=== PATIENT | male | born 1950 | race Caucasian/White ===

== ENCOUNTER 2018-12-06 16:27 | Emergency (ER) | payer MEDICAID ==
[~2018-12-06] VITALS: Ht 152.4 cm; Wt 72.7 kg
[2018-12-06] MEDS ORDERED: ASPI-1182 PO (16:46)
[2018-12-06] MEDS ORDERED: HYDR-4069 PO (16:46)
[2018-12-06] MEDS ORDERED: CARV12 PO (16:46)
[2018-12-06] MEDS ORDERED: GABA-531 PO (16:46)
[2018-12-06] MEDS ORDERED: ATOR40TA28 PO (16:46)
[2018-12-06] MEDS ORDERED: LISI-660 PO (16:46)
[2018-12-06] MEDS ORDERED: TAMS-1 PO (16:46)
[2018-12-06] MEDS ORDERED: DICLOFENAC SODIUM 1% 100 GM GEL [4GM] TP ONE (19:15)
[2018-12-06 19:36] VITALS: BP 114/75
== END 2018-12-06 19:47 | disposition home or self-care (01) ==
LOC: EMS 16:30
DX: M23.92 Unspecified internal derangement of left knee (principal); E78.00 Pure hypercholesterolemia, unspecified; I10 Essential (primary) hypertension; F12.90 Cannabis use, unspecified, uncomplicated; Z86.19 Personal history of other infectious and parasitic diseases; Z79.899 Other long term (current) drug therapy

== ENCOUNTER 2019-10-08 09:31 | Emergency (ER) | payer MEDICARE, MEDICAID ==
[~2019-10-08] VITALS: Ht 170.2 cm; Wt 78.6 kg
[~2019-10-08 09:31] MED LIST: ASPI-1111 PO; ATOR40TA28 PO; CARV12 PO; GABA-1181 PO; HYDR-4069 PO; LISI-660 PO; TAMS-1 PO
[2019-10-08 10:10] LABS: BASOPHILS % (AUTO) 1.3 % (0.0-2.0); EOSINOPHILS % (AUTO) 5.8 % (1.0-6.0); HEMATOCRIT 39.5 % (41-53); HEMOGLOBIN 13.1 g/dL (13.5-17.5); LYMPHOCYTES # (AUTO) 1.5 K/uL (1.0-4.8); LYMPHOCYTES % (AUTO) 32.5 % (22.0-44.0); MEAN CORPUSCULAR HEMOGLOBIN 29.3 pg (26.0-34.0); MEAN CORPUSCULAR HGB CONC 33.1 G/dL (31.0-37.0); MEAN CORPUSCULAR VOLUME 89 fL (80-100); MONOCYTES # (AUTO) 0.6 K/uL (0.1-1.0); MONOCYTES % (AUTO) 12.8 % (2.0-9.0); NEUTROPHILS # (AUTO) 2.2 K/uL (1.8-7.7); NEUTROPHILS % (AUTO) 47.6 % (40.0-70.0); PLATELET COUNT (AUTO) 132 K/uL (150-450); RED BLOOD CELL COUNT(AUTO) 4.47 MIL/uL (4.50-5.90); RED CELL DISTRIBUTION WIDTH 15.1 % (11.5-14.5)
[2019-10-08 10:19] LABS: CALCIUM, TOTAL 8.9 mg/dL (8.8-10.5); CREATININE 1.33 mg/dL (0.60-1.30); POTASSIUM 4.4 mmol/L (3.5-5.1)
[2019-10-08 10:22] LABS: PROTHROMBIN TIME 10.7 SEC (9.4-11.6)
[2019-10-08 10:25] LABS: ALBUMIN 3.7 g/dL (3.4-5.0); BILIRUBIN,TOTAL 0.5 mg/dL (0.1-1.0); TOTAL PROTEIN, SERUM 7.6 g/dL (6.4-8.2)
[2019-10-08] MEDS ORDERED: ASPIRIN 325 MG TABLET PO ONE (10:45)
[2019-10-08] MEDS: ASPIRIN 300 MG RECTAL SUPPOSITORY PR ONE (11:00)
[2019-10-08 16:00] VITALS: BP 126/89
== END 2019-10-08 16:21 | disposition short-term general hospital (02) ==
LOC: EMS 09:31
DX: I63.9 Cerebral infarction, unspecified (principal); E78.00 Pure hypercholesterolemia, unspecified; I10 Essential (primary) hypertension; F12.90 Cannabis use, unspecified, uncomplicated; Z79.899 Other long term (current) drug therapy; Z79.82 Long term (current) use of aspirin
CPT/HCPCS: 86850; 86900; 86901; 93005; 99291

== ENCOUNTER → 2019-12-31 | Emergency (ER) | payer MEDICARE, MEDICAID ==
[~2019-12-31] VITALS: Ht 165.1 cm; Wt 81.8 kg
[~2019-12-31] MED LIST changes: +CefTRIAXone 1 GM/DEXTROSE 50 ML IV ONE; +SODIUM CHLORIDE 0.9% 1,000 ML IV ONE; +VANCOMYCIN HCL 1 GM/D5% WATER 200 ML IV ONE
[2019-12-31 10:34] LABS: BASOPHILS % (AUTO) 0.5 % (0.0-2.0); EOSINOPHILS % (AUTO) 0.8 % (1.0-6.0); HEMATOCRIT 38.1 % (41-53); HEMOGLOBIN 12.3 g/dL (13.5-17.5); LYMPHOCYTES % (AUTO) 5.3 % (22.0-44.0); MEAN CORPUSCULAR HEMOGLOBIN 28.4 pg (26.0-34.0); MEAN CORPUSCULAR HGB CONC 32.4 G/dL (31.0-37.0); MEAN CORPUSCULAR VOLUME 88 fL (80-100); MONOCYTES # (AUTO) 0.9 K/uL (0.1-1.0); MONOCYTES % (AUTO) 4.4 % (2.0-9.0); NEUTROPHILS # (AUTO) 17.3 K/uL (1.8-7.7); RED BLOOD CELL COUNT(AUTO) 4.35 MIL/uL (4.50-5.90); RED CELL DISTRIBUTION WIDTH 15.3 % (11.5-14.5)
[2019-12-31 10:39] LABS: CALCIUM, TOTAL 8.7 mg/dL (8.8-10.5); CREATININE 1.71 mg/dL (0.60-1.30); POTASSIUM 4.5 mmol/L (3.5-5.1)
[2019-12-31 10:49] LABS: LACTIC ACID 1.1 mmol/L (0.4-2.0)
[2019-12-31 10:51] LABS: PLATELET COUNT (AUTO) 124 K/uL (150-450)
[2019-12-31 11:04] LABS: ALBUMIN 3.2 g/dL (3.4-5.0); BILIRUBIN,TOTAL 0.5 mg/dL (0.1-1.0); TOTAL PROTEIN, SERUM 7.6 g/dL (6.4-8.2)
[2019-12-31 14:49] VITALS: BP 136/77
== END | disposition home or self-care (01) ==
LOC: EMS 09:22
DX: L03.116 Cellulitis of left lower limb (principal); E78.00 Pure hypercholesterolemia, unspecified; I10 Essential (primary) hypertension; F12.90 Cannabis use, unspecified, uncomplicated; Z20.828 Contact with and (suspected) exposure to other viral communicable diseases; Z86.73 Personal history of transient ischemic attack (TIA), and cerebral infarction without residual deficits; Z79.82 Long term (current) use of aspirin; Z79.899 Other long term (current) drug therapy
CPT/HCPCS: 36415; 73590; 73630; 80053; 82550; 83605; 84484; 85025; 87040; 87426; 93970; 96361; 96365; 96366; 96368; 99285; J0696; J3370; J7030

== ENCOUNTER 2020-01-14 16:12 | Emergency (ER) | payer MEDICARE, MEDICAID ==
[~2020-01-14] VITALS: Ht 165.1 cm; Wt 80.8 kg
[~2020-01-14 16:12] MED LIST changes: -CefTRIAXone 1 GM/DEXTROSE 50 ML IV ONE; -SODIUM CHLORIDE 0.9% 1,000 ML IV ONE; -VANCOMYCIN HCL 1 GM/D5% WATER 200 ML IV ONE
[2020-01-14 16:37] LABS: BASOPHILS % (AUTO) 1.1 % (0.0-2.0); EOSINOPHILS % (AUTO) 3.3 % (1.0-6.0); HEMATOCRIT 33.7 % (41-53); HEMOGLOBIN 11.1 g/dL (13.5-17.5); LYMPHOCYTES # (AUTO) 1.9 K/uL (1.0-4.8); LYMPHOCYTES % (AUTO) 24.5 % (22.0-44.0); MEAN CORPUSCULAR HEMOGLOBIN 28.8 pg (26.0-34.0); MEAN CORPUSCULAR HGB CONC 32.9 G/dL (31.0-37.0); MEAN CORPUSCULAR VOLUME 88 fL (80-100); MONOCYTES # (AUTO) 0.8 K/uL (0.1-1.0); MONOCYTES % (AUTO) 10.1 % (2.0-9.0); NEUTROPHILS # (AUTO) 4.7 K/uL (1.8-7.7); PLATELET COUNT (AUTO) 441 K/uL (150-450); RED BLOOD CELL COUNT(AUTO) 3.85 MIL/uL (4.50-5.90); RED CELL DISTRIBUTION WIDTH 15.6 % (11.5-14.5)
[2020-01-14] MEDS ORDERED: ASPIRIN 325 MG EC TABLET PO ONE (16:45)
[2020-01-14] MEDS ORDERED: ALTEPLASE IV ONE ×2 (16:45)
[2020-01-14] MEDS ORDERED: WATER FOR INJECTION STERILE IV ONE ×2 (16:45)
[2020-01-14 16:47] LABS: CREATININE 1.73 mg/dL (0.60-1.30); POTASSIUM 5.4 mmol/L (3.5-5.1)
[2020-01-14 16:53] LABS: ALBUMIN 2.8 g/dL (3.4-5.0); BILIRUBIN,TOTAL 0.2 mg/dL (0.1-1.0)
[2020-01-14] MEDS ORDERED: SODIUM CHLORIDE 0.9% 100 ML ONE (17:18)
[2020-01-14] MEDS ORDERED: IOVERSOL 320 MG/ML 100 ML VIAL ONE (17:18)
[2020-01-14 17:23] LABS: GLUCOSE,POINT OF CARE 97 MG/DL (70-110)
[2020-01-14] MEDS ORDERED: SODIUM CHLORIDE 0.9% 500 ML IV ONE (17:30)
[2020-01-14] MEDS ORDERED: ASPIRIN 81 MG CHEWABLE TABLET PO ONE (17:45)
[2020-01-14] MEDS ORDERED: CLINDAMYCIN HCL 150 MG CAPSULE PO ONE (18:30)
[2020-01-14] MEDS ORDERED: SODIUM POLYSTYRENE SULFONATE 15 GM/60 ML SUSPENSION BOTTLE PO ONE (18:30)
[2020-01-14] MEDS ORDERED: DiphenhydrAMINE HCL 50 MG/ML VIAL IVP ONE (18:30)
[2020-01-14] MEDS ORDERED: SODIUM CHLORIDE 0.9% 1,000 ML IV ONE (19:30)
[2020-01-14 19:48] LABS: COVID AG,FIA SOURCE NASOPHARYNGEAL
[2020-01-14 21:30] VITALS: BP 115/75
== END 2020-01-14 22:46 | disposition short-term general hospital (02) ==
LOC: EMS 16:12
DX: G45.9 Transient cerebral ischemic attack, unspecified (principal); L03.116 Cellulitis of left lower limb; E78.00 Pure hypercholesterolemia, unspecified; I10 Essential (primary) hypertension; F12.90 Cannabis use, unspecified, uncomplicated; Z20.828 Contact with and (suspected) exposure to other viral communicable diseases; Z79.899 Other long term (current) drug therapy; Z79.82 Long term (current) use of aspirin
CPT/HCPCS: 36415; 70450; 70496; 71045; 80053; 82962; 84132; 84484; 85025; 85610; 85730; 86850; 86900; 86901; 87426; 93005; 96361; 96374; 99291; J1200; J7030; J7050; Q9967; J2997